=== PATIENT | female | born 1960 | race Caucasian/White ===

== ENCOUNTER 2018-12-05 21:22 | Emergency (ER) | payer MEDICAID ==
[~2018-12-05] VITALS: Ht 160 cm; Wt 77.1 kg
[2018-12-05 21:29] VITALS: BP 129/70
--- NOTE | 2018-12-05 21:29 | NUR ---
TO BED # 11 AMBULATORY, REPORT GIVEN TO KEN CLIFTON
--- NOTE | 2018-12-05 21:51 | NUR ---
57/F PRESENTS TO ED WITH FAMILY/FRIEND, C/O SUDDEN ONSET 9/10 BURNING POSTERIOR L THIGH PAIN RADIATING TO L CALF, NOTED LARGE VARICOSE VEINS, TENDER TO TOUCH, ABLE TO BEAR WEIGHT. REPORTS THAT PAIN STARTED WHILE IN THE SHOWER. PT AOX4, GCS 15, RR EVEN AND UNLABORED, MILD AMOUNT OF PAIN DISTRESS. HX R KNEE REPLACEMENT, LLE SURGERY (43 YEARS AGO)
--- NOTE | 2018-12-05 22:05 | NUR ---
Dr. Garcia evaluating patient at bedside.
[2018-12-05] MEDS ORDERED: KETOROLAC 30 MG/ML VIAL IM ONE (22:10)
[2018-12-05] MEDS ORDERED: MORPHINE SULFATE 4 MG/ML SYR IM ONE (22:10)
[2018-12-05] MEDS ORDERED: ONDANSETRON 4 MG ODT PO ONE (22:10)
[2018-12-05 23:15] VITALS: BP 127/76
--- NOTE | 2018-12-05 23:15 | NUR ---
Patient discharged with v/s stable. Written and verbal after care instructions given and explained. Patient alert, oriented and verbalized understanding of instructions. Ambulatory with steady gait. All questions addressed prior to discharge. ID band removed. Patient advised to follow up with PMD. Rx of NAPROSYN, KEFLEX, NORCO given. Patient educated on indication of medication including possible reaction and side effects. Opportunity to ask questions provided and answered.
== END 2018-12-05 23:15 | disposition home or self-care (01) ==
LOC: MED 21:22
DX: I83.92 Asymptomatic varicose veins of left lower extremity (principal); I80.9 Phlebitis and thrombophlebitis of unspecified site
CPT/HCPCS: 93971; 96372; 99284; J1885; J2270; Q0092; Q0162